=== PATIENT | male | born 1930 | race Caucasian/White ===

== ENCOUNTER 2017-11-02 12:57 | Emergency (ER) | payer MEDICARE, OTHER ==
[2017-11-02 13:20] VITALS: BP 129/83
[2017-11-02] MEDS ORDERED: Sodium Chloride 0.9% 10 ML Syringe FLUSH PRN (14:02)
--- NOTE | 2017-11-02 14:27 | EDM.PDOC ---
ED HPI GENERAL MEDICAL PROBLEM - General Chief Complaint: Neuro Symptoms/Deficits Stated Complaint: WEAK, UNABLE TO WALK, CONFUSED Time Seen by Provider: 11/02/17 13:27 Source of Information: Reports: Patient, Family History Limitations: Reports: Altered Mental Status - History of Present Illness INITIAL COMMENTS - FREE TEXT/NARRATIVE: The patient is an 87-year-old male who is brought in by a son and daughter for confusion and weakness. 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 Family states that they noticed a change about 2 weeks ago. The patient started to have some confused speech. This was intermittent. He would say things like "let's go home" when he was already at home. He also thought they need to plan corn which makes no sense since its winter time. He had a waxing and waning confusion. No known falls or trauma but he's become increasingly weak. Family states he now can't really get out of bed or go to the bathroom without assistance. He's had several bedwetting accidents. This is also a change, previously he was walking okay with a cane. No specific extremity weakness, just seems generally weak. No known fever. He's had a minimal cough. No chest pain or shortness of breath. Patient denies abdominal pain. No vomiting or diarrhea. He's had some urinary accidents. No skin change or rash. No history of similar symptoms previously. The patient lives at home with an elderly girlfriend. - Related Data Allergies Allergy/AdvReac Type Severity Reaction Status Date / Time No Known Allergies Allergy Verified 04/24/15 09:08 Home Meds: Home Meds Allopurinol [Allopurinol] 150 mg PO DAILY 01/03/15 [History] Ibuprofen [Ibuprofen] 1 tab PO TID 01/03/15 [History] Labetalol [Normodyne] 200 mg PO DAILY 01/03/15 [History] Levothyroxine [Synthroid] 50 mcg PO ACBREAKFAST 01/03/15 [History] Olmesartan [Benicar] 20 mg PO DAILY 01/03/15 [History] Omeprazole [priLOSEC OTC] 20 mg PO BID 01/03/15 [History] Potassium Chloride 20 meq PO BID 01/03/15 [History] Simvastatin [Simvastatin] 1 tab PO BEDTIME 01/03/15 [History] Spironolactone 50 mg PO DAILY 01/03/15 [History] amLODIPine [Norvasc] 5 mg PO DAILY 01/03/15 [History] Cephalexin 500 mg PO QID #16 capsule 11/02/17 [Rx] Past Medical History HEENT History: Reports: Macular Degeneration, Sinusitis Other HEENT History: Wears glasses Cardiovascular History: Reports: High Cholesterol, Hypertension Respiratory History: Reports: Bronchitis, Recurrent, Other (See Below) Other Respiratory History: chronic airway obstruction-steady cough Gastrointestinal History: Reports: GERD Neurological History: Reports: Migraines, Other (See Below) 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; benign Endocrine/Metabolic History: Reports: Hypoparathyroidism - Past Surgical History HEENT Surgical History: Reports: Adenoidectomy, Cataract Surgery, Tonsillectomy GI Surgical History: Reports: Appendectomy, Cholecystectomy Social & Family History - Tobacco Use Smoking Status *Q: Former Smoker Used Tobacco, but Quit: Yes Month Tobacco Last Used: 35 yrs ago Second Hand Smoke Exposure: No - Caffeine Use Caffeine Use: Reports: Coffee, Soda, Tea - Alcohol Use Days Per Week of Alcohol Use: 0 Number of Drinks Per Day: 1 Total Drinks Per Week: 0 - Recreational Drug Use Recreational Drug Use: No ED ROS GENERAL - Review of Systems Review Of Systems: See Below Constitutional: Denies: Fever HEENT: Reports: No Symptoms Respiratory: Denies: Shortness of Breath Cardiovascular: Denies: Chest Pain Endocrine: Reports: Fatigue GI/Abdominal: Denies: Abdominal Pain, Nausea : Denies: Dysuria Musculoskeletal: Reports: No Symptoms Skin: Reports: No Symptoms Neurological: Reports: Confusion, Difficulty Walking Psychiatric: Reports: No Symptoms Hematologic/Lymphatic: Reports: No Symptoms Immunologic: Reports: No Symptoms ED EXAM, NEURO - Physical Exam Exam: See Below Exam Limited By: No Limitations General Appearance: Alert, WD/WN, No Apparent Distress, Other (Pleasantly confused. Answers some questions appropriately. Thinks it's 1978. He is oriented to person and place and knows the day of the week.) Eye Exam: Bilateral Eye: EOMI, Normal Inspection, PERRL Ears: Normal External Exam Nose: Normal Inspection Throat/Mouth: Normal Inspection, Normal Oropharynx, Normal Voice Head Exam: Atraumatic, Normocephalic Neck: Normal Inspection, Supple, Non-Tender, Full Range of Motion Respiratory/Chest: No Respiratory Distress, Lungs Clear, Normal Breath Sounds, No Accessory Muscle Use Cardiovascular: Normal Peripheral Pulses, Regular Rate, Rhythm, No Edema, No Murmur GI/Abdominal: Soft, Non-Tender, No Distention. No: Rebound Neurological: Alert, Normal Mood/Affect, Normal Dorsiflexion, CN II-XII Intact, Normal Plantar Flexion, No Motor/Sensory Deficits, Other (Oriented to person and place and day of week but thinks its 1978) Back Exam: Normal Inspection. No: Vertebral Tenderness Extremities: Normal Inspection, No Pedal Edema. No: Pallor Psychiatric: Normal Affect, Normal Mood Skin Exam: Warm, Dry, Intact, Normal Color, No Rash Course - Vital Signs Last Recorded V/S: Last Vital Signs Temp 36.7 C 11/02/17 13:19 Pulse 93 11/02/17 13:19 Resp 20 11/02/17 13:19 BP 129/83 11/02/17 13:19 Pulse Ox 94 L 11/02/17 13:19 - Orders/Labs/Meds Orders: Active Orders 24 hr Category Date Time Status EKG 12 Lead [EKG Documentation Completion] [RC] STAT Care 11/02/17 14:01 Active Peripheral IV Care [RC] . DIRECTED Care 11/02/17 14:02 Active Chest 1V Frontal [CR] Stat Exams 11/02/17 14:01 Taken CULTURE URINE [RM] Stat Lab 11/02/17 15:35 Results Peripheral IV Insertion Adult [OM.PC] Routine Oth 11/02/17 14:02 Ordered Labs: Laboratory Tests 11/02/17 11/02/17 11/02/17 Range/Units 14:40 14:40 15:35 WBC 11.43 H (4.23-9.07) K/mm3 RBC 4.41 L (4.63-6.08) M/mm3 Hgb 13.8 (13.7-17.5) gm/L Hct 42.1 (40.1-51.0) % MCV 95.5 H (79.0-92.2) fl MCH 31.3 (25.7-32.2) pg MCHC 32.8 (32.2-35.5) g/dl RDW Std Deviation 48.9 H (35.1-43.9) fL Plt Count 150 L (163-337) K/mm3 MPV 10.7 (9.4-12.3) fl Neut % (Auto) 73.3 H (34.0-67.9) % Lymph % (Auto) 13.0 L (21.8-53.1) % [place] % (Auto) 12.4 H (5.3-12.2) % Eos % (Auto) 1.0 (0.8-7.0) Baso % (Auto) 0.1 (0.1-1.2) % Neut # (Auto) 8.38 H (1.78-5.38) K/mm3 Lymph # (Auto) 1.49 (1.32-3.57) K/mm3 [place] # (Auto) 1.42 H (0.30-0.82) K/mm3 Eos # (Auto) 0.11 (0.04-0.54) K/mm3 Baso # (Auto) 0.01 (0.01-0.08) K/mm3 Sodium 144 (136-145) mEq/L Potassium 3.6 (3.5-5.1) mEq/L Chloride 107 (98-107) mEq/L Carbon Dioxide 27 (21-32) mEq/L Anion Gap 13.6 (5-15) BUN 29 H (7-18) mg/dL Creatinine 1.2 (0.7-1.3) mg/dL Est Cr Clr Drug Dosing 45.01 mL/min Estimated GFR (MDRD) 58 (>60) mL/min BUN/Creatinine Ratio 24.2 H (14-18) Glucose 89 (83-115) mg/dL Calcium 10.7 H (8.5-10.1) mg/dL Total Bilirubin 0.7 (0.2-1.0) mg/dL AST 61 H (15-37) U/L ALT 27 (16-63) U/L Alkaline Phosphatase 53 (46-116) U/L Troponin I < 0.017 (0.00-0.056) ng/mL Total Protein 8.0 (6.4-8.2) g/dl Albumin 4.1 (3.4-5.0) g/dl Globulin 3.9 gm/dL Albumin/Globulin Ratio 1.1 (1-2) Free T4 1.18 (0.76-1.46) ng/dL TSH 3rd Generation 1.817 (0.358-3.74) uIU/mL Urine Color Dark yellow (Yellow) Urine Appearance Slt cloudy H (Clear) Urine pH 5.5 (5.0-8.0) Ur Specific [place] > or = 1.030 (1.005-1.030) Urine Protein 2+ H (Negative) Urine Glucose (UA) Negative (Negative) Urine Ketones Trace H (Negative) Urine Occult Blood 2+ H (Negative) Urine Nitrite Negative (Negative) Urine Bilirubin 1+ H (Negative) Urine Urobilinogen 0.2 (0.2-1.0) Ur Leukocyte Esterase Negative (Negative) Urine RBC 5-10 H (0-5) /hpf Urine WBC 5-10 H (0-5) /hpf Ur Epithelial Cells 0-5 (0-5) /hpf Urine Bacteria Moderate H (FEW) /hpf Urine Mucus Many H (FEW) /hpf Meds: Medications Discontinued Medications Generic Name Dose Route Start Last Admin Trade Name Freq PRN Reason Stop Dose Admin Cephalexin 500 mg 11/02/17 16:35 11/02/17 16:47 Keflex PO 11/02/17 16:36 500 mg ONETIME ONE Administration Sodium Chloride 1,000 mls @ 1,000 mls/hr 11/02/17 16:23 11/02/17 17:38 Normal Saline IV 11/02/17 17:22 Not Given ONETIME ONE Sodium Chloride 10 ml 11/02/17 14:02 Saline Flush FLUSH ASDIRECTED PRN Keep Vein Open - Re-Assessments/Exams Free Text/Narrative Re-Assessment/Exam: CT head shows no acute abnormality. CXR shows no acute abnormality. WBC count 11. UA shows concentrated urine. LCE/nitrite neg. 5-10 WBC but many bacteria. Culture sent. Meanwhile, will treat until culture returns. Remaining labs including chemistry and thyroid studies unremarkable. No definite explanation for mental status change. Delirium due to unknown factor vs. dementia. Offered admission for further workup and possible ultimate placement but family prefers to take pt home. They have f/u scheduled with Dr. Chu on Sunday. Discussed return precautions. 11/03/17 10:29 Departure - Departure Time of Disposition: 16:35 Disposition: Home, Self-Care 01 Clinical Impression: Urinary tract infection Qualifiers: Urinary tract infection type: acute cystitis Hematuria presence: with hematuria Qualified Code(s): N30.01 - Acute cystitis with hematuria Altered mental status Qualifiers: Altered mental status type: delirium Qualified Code(s): R41.0 - Disorientation , unspecified - Discharge Information Prescriptions: Cephalexin 500 mg PO QID #16 capsule Instructions: Urinary Tract Infection, Adult, [id number] Referrals: Reese Chu MD [Primary Care Provider] - Forms: ED Department Discharge Additional Instructions: 1. Urine test was not conclusive for infection, but also wasn't normal. We will send a urine culture and I will call you in 1-2 days with result. Meanwhile, we will treat with an antibiotic. You will need additional days of antibiotic if culture is positive. 2. Follow up with Dr. Chu on Sunday as planned. 3. Return to ED at any time if worse, or if Eddie has fever, shortness of breath, abdominal pain, vomiting, or worsening confusion or any other concerning symptoms - My Orders Last 24 Hours: My Active Orders 11/02/17 14:01 EKG 12 Lead [EKG Documentation Completion] [RC] STAT Chest 1V Frontal [CR] Stat 11/02/17 14:02 Peripheral IV Care [RC] . DIRECTED Peripheral IV Insertion Adult [OM.PC] Routine 11/02/17 15:35 CULTURE URINE [RM] Stat - Assessment/Plan Last 24 Hours: My Active Orders 11/02/17 14:01 EKG 12 Lead [EKG Documentation Completion] [RC] STAT Chest 1V Frontal [CR] Stat 11/02/17 14:02 Peripheral IV Care [RC] . DIRECTED Peripheral IV Insertion Adult [OM.PC] Routine 11/02/17 15:35 CULTURE URINE [RM] Stat
--- NOTE | 2017-11-02 14:34 | CT ---
Head CT Technique: Multiple axial sections through the brain were obtained. Intravenous contrast was not utilized. Comparison: Prior MRI brain dated 10/30/17 and baseline MRI brain of 03/22/10. Findings: Ventricles along with basal cisterns and sulci over convexities are mildly prominent. Small high density area is seen along the medial right lateral ventricle. This finding measures approximately 1 cm in size. This finding is stable from prior MRI brain exams. This finding presumably is due to benign tumor. No other abnormal parenchymal densities are seen. No evidence of intracranial hemorrhage. No midline shift or mass effect is seen. Bone window settings were reviewed which shows no acute calvarial abnormality. Visualized sinuses are clear. Impression: 1. 1 cm intraventricular abnormality within the right lateral ventricle along its medial aspect. This finding was not mentioned on prior MRI study of 10/30/17 but is seen in retrospect. This finding is stable back to baseline MRI of 03/22/10. As mentioned above, this is felt to represent an incidental benign tumor since it is stable. 2. Mild senescent change. 3. No acute intracranial abnormality is appreciated. Diagnostic code #3
[2017-11-02] MEDS ORDERED: Sodium Chloride 0.9% 1,000 ML IV ONE (16:23)
[2017-11-02] MEDS ORDERED: Cephalexin 500 MG Cap PO ONE (16:35)
--- NOTE | 2017-11-05 08:34 | CR ---
Chest: Portable view of the chest was obtained. Comparison: Prior chest CT of 03/15/15, no prior chest x-ray is available. Small nodules are seen within the chest compatible with granulomas. These are identified on prior chest CT. Lungs otherwise are clear. Heart size is normal. Tortuous thoracic aorta is seen. Bony structures are grossly intact. Impression: 1. Scattered granulomas within the chest. 2. Nothing acute is appreciated on portable chest x-ray. Diagnostic code #2
== END 2017-11-02 16:55 | disposition home or self-care (01) ==
LOC: JD.ED 12:57
DX: N30.01 Acute cystitis with hematuria (principal); R41.0 Disorientation, unspecified; I10 Essential (primary) hypertension; E78.00 Pure hypercholesterolemia, unspecified; Z79.899 Other long term (current) drug therapy; Z87.891 Personal history of nicotine dependence
CPT/HCPCS: 36415; 70450; 71010; 80053; 81001; 84439; 84443; 84484; 85025; 87086; 93005; 99285; A9270; 99283

== ENCOUNTER 2018-01-22 11:19 | Emergency (ER) | payer MEDICARE, OTHER ==
[2018-01-22] MEDS ORDERED: Sodium Chloride 0.9% 10 ML Syringe FLUSH PRN (12:02)
[2018-01-22] MEDS ORDERED: Sodium Chloride 0.9% 1,000 ML IV SCH (12:15)
--- NOTE | 2018-01-22 12:30 | CT ---
Small abnormality felt to represent a focal area of parenchymal hemorrhage appears to be stable from previous studies. The area of increased density within the posterior occipital horns remains is an interval change. On most recent MRI there is areas of signal void being within this finding which is compatible with hemosiderin compatible with chronic hemorrhage. Presumed intraventricular blood may result present a small acute hemorrhage from this finding. Recommend follow-up head CT in 24 hours to make sure findings are stable. --- Addendum1 above dictated on [01/22/2018 12:49] by [Courtney Monroe Hilton J.] --- --- Addendum1 above signed on [01/22/2018 12:51] by [Courtney Monroe Hilton J.] --- --- Original report below dictated on [01/22/2018 12:26] by [Coutrney Monroe, Hans Kim] --- --- Original report below signed on [01/22/2018 12:27] by [Courtney Monroe, Hans Kim] --- Head CT Technique: Multiple axial sections through the brain were obtained. Intravenous contrast was not utilized. Findings: Vague increased density is identified within the occipital horns of both lateral ventricles which is felt to be due to a small amount of blood. Small amount of parenchymal blood is also identified adjacent to the medial right lateral ventricle measuring about 1 cm in size. No other areas of hemorrhage are seen. Ventricles along with basal cisterns and sulci over convexities are moderately prominent. Mild atherosclerotic calcification is seen within the carotid siphon. No acute calvarial abnormality is seen. Impression: 1. Small amount of blood within the dependent occipital lobes of the lateral ventricles. 2. Small parenchymal hemorrhage within the medial aspect of the lateral right ventricle. This is the likely etiology for the intraventricular blood. Etiology for this small parenchymal hemorrhage is not apparent on this exam. 3. Senescent change as noted above. Diagnostic code #5 --- Addendum1 signed ---
--- NOTE | 2018-01-22 12:38 | CR ---
Chest: Portable view of the chest was obtained. Comparison: Prior chest x-ray at 11/02/17. Two small nodules are seen within both lung bases most likely due to granulomas. Minimal bibasilar atelectasis is seen. Lungs otherwise are clear. Heart size is normal. Tortuous thoracic aorta is seen. Bony structures are grossly intact. Impression: 1. Incidental findings. Nothing acute is seen. Diagnostic code #2
[2018-01-22] MEDS ORDERED: Lidocaine 2% Jelly 10 ML Urojet ONE (13:16)
--- NOTE | 2018-01-22 13:35 | EDM.PDOC ---
ED HPI GENERAL MEDICAL PROBLEM - General Chief Complaint: General Stated Complaint: FALL/HEAD INJURY Time Seen by Provider: 01/22/18 11:37 Source of Information: Reports: Patient History Limitations: Reports: No Limitations - History of Present Illness INITIAL COMMENTS - FREE TEXT/NARRATIVE: The patient presents with family from [facility] for confusion and altered mental status. The patient started having problems back in October. He was living at home with a girlfriend for many years. She left because she could not take care of him. Family had him evaluated at the ER here and with his provider and with neurology and a neurosurgeon. He was confused and having trouble with walking. 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 He has been a fall risk. He will get up and walk around. He fell a few days ago. He has not been acting the same since. He has not been talking and been confused. He cannot walk without 2 lots of help. He has no fever, he has not been coughing or vomiting. He does have some trouble now when he drinks water. He does choke on it. He has not been eating much. Onset: Gradual Duration: Week(s): Severity: Moderate Improves with: Reports: None Worsens with: Reports: None Associated Symptoms: Denies: Cough, Fever/Chills, Nausea/Vomiting, Shortness of Breath - Related Data Allergies Allergy/AdvReac Type Severity Reaction Status Date / Time No Known Allergies Allergy Verified 01/22/18 11:39 Home Meds: Home Meds Allopurinol [Allopurinol] 150 mg PO DAILY 01/03/15 [History] Levothyroxine [Synthroid] 50 mcg PO ACBREAKFAST 01/03/15 [History] Omeprazole [priLOSEC OTC] 20 mg PO DAILY 01/03/15 [History] Potassium Chloride 10 meq PO BID 01/03/15 [History] Spironolactone 25 mg PO DAILY 01/03/15 [History] Acetaminophen [Mapap] 1,000 mg PO TID 01/22/18 [History] Acetaminophen/HYDROcodone [[place] 325-5 MG] 1 tab PO BID PRN 01/22/18 [History] Cyanocobalamin (Vitamin B-12) [Vitamin B-12] 1,000 mcg PO DAILY 01/22/18 [ History] Donepezil HCl [Aricept] 10 mg PO BEDTIME 01/22/18 [History] Lactose-Reduced Food [Ensure] 8 oz PO BID 01/22/18 [History] Magnesium Oxide [Magnesium] 400 mg PO DAILY 01/22/18 [History] Melatonin 3 mg PO BEDTIME 01/22/18 [History] Methyl Salicylate/Menthol [Salonpas Patch] 1 each TP DAILY 01/22/18 [History] QUEtiapine Fumarate [Seroquel] 12.5 mg PO PCBREAKFAST 01/22/18 [History] QUEtiapine Fumarate [Seroquel] 37.5 mg PO BEDTIME 01/22/18 [History] Sennosides/Docusate Sodium [Senna-S] 2 tab PO DAILY PRN 01/22/18 [History] Vit C/Vit E Ac/Lut/Mineral 1 [Prosight with Lutein] 1 each PO DAILY 01/22/18 [ History] Past Medical History HEENT History: Reports: Hard of Hearing, Impaired Vision, Macular Degeneration, Sinusitis Other HEENT History: Wears glasses Cardiovascular History: Reports: High Cholesterol, Hypertension Respiratory History: Reports: Bronchitis, Recurrent, Other (See Below) Other Respiratory History: chronic airway obstruction-steady cough Gastrointestinal History: Reports: Chronic Constipation, GERD Musculoskeletal History: Reports: Back Pain, Chronic, Other (See Below) Other Musculoskeletal History: mobility and gait difficulties Neurological History: Reports: Migraines, Other (See Below) 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, disorientation , alzheimer's, dementia, cognitive communication deficit Psychiatric History: Reports: Alzheimers Disease, Dementia, Other (See Below) Other Psychiatric History: insomnia Endocrine/Metabolic History: Reports: Hypothyroidism Hematologic History: Reports: B12 Deficiency - Past Surgical History HEENT Surgical History: Reports: Adenoidectomy, Cataract Surgery, Tonsillectomy GI Surgical History: Reports: Appendectomy, Cholecystectomy Social & Family History - Family History Family Medical History: Noncontributory - Tobacco Use Smoking Status *Q: Never Smoker Used Tobacco, but Quit: Yes Month Tobacco Last Used: 35 yrs ago Second Hand Smoke Exposure: No - Caffeine Use Caffeine Use: Reports: Coffee - Alcohol Use Days Per Week of Alcohol Use: 0 Number of Drinks Per Day: 1 Total Drinks Per Week: 0 - Recreational Drug Use Recreational Drug Use: No ED ROS GENERAL - Review of Systems Review Of Systems: Unable To Obtain ED EXAM, GENERAL - Physical Exam Exam: See Below Exam Limited By: Altered Mental Status General Appearance: Alert, Other (The patient does not talk and he will not follow commands) Ears: Normal External Exam Nose: Normal Inspection Head: Other (Ecchymosis and mild edema to the right side of his head) Neck: Normal Inspection Respiratory/Chest: No Respiratory Distress, Lungs Clear, Normal Breath Sounds Cardiovascular: Regular Rate, Rhythm, No Edema, No Murmur GI/Abdominal: Soft, Non-Tender, No Organomegaly, No Mass Back Exam: Normal Inspection Extremities: Normal Inspection Neurological: Alert, Other (He will not talk except once he said high) EKG INTERPRETATION EKG Date: 01/22/18 Time: 13:34 Rhythm: NSR Rate (Beats/Min): 98 [place]: Normal P-Wave: Present QRS: Normal ST-T: Normal QT: Normal Course - Vital Signs Last Recorded V/S: Last Vital Signs Temp 100.8 F H 01/22/18 17:53 Pulse 169 H 01/22/18 18:32 Resp 24 H 01/22/18 17:48 BP 108/68 01/22/18 18:32 Pulse Ox 91 L 01/22/18 17:48 - Orders/Labs/Meds Orders: Active Orders 24 hr Category Date Time Status Cardiac Monitoring [RC] . DIRECTED Care 01/22/18 12:02 Active EKG Documentation Completion [RC] STAT Care 01/22/18 12:03 Active Peripheral IV Care [RC] . DIRECTED Care 01/22/18 12:02 Active CULTURE BLOOD [BC] Stat Lab 01/22/18 14:57 Received CULTURE BLOOD [BC] Stat Lab 01/22/18 18:30 Received Sodium Chloride 0.9% [Normal Saline] 1,000 ml Med 01/22/18 12:15 Active IV .BOLUS Sodium Chloride 0.9% [Saline Flush] Med 01/22/18 12:02 Active 10 ml FLUSH ASDIRECTED PRN cefTRIAXone [Rocephin] 2 gm Med 01/22/18 14:45 Active Sodium Chloride 0.9% [Normal Saline] 100 ml IV Q24H Blood Culture x2 Reflex Set [OM.PC] Stat Oth 01/22/18 14:42 Ordered Peripheral IV Insertion Adult [OM.PC] Stat Ot 01/22/18 12:02 Ordered Medication Orders Sodium Chloride (Normal Saline) 1,000 mls @ 1,000 mls/hr IV .[facility]OLUS [facility] Last Admin: 01/22/18 12:30 Dose: 1,000 mls/hr Ceftriaxone Sodium 2 gm/ (Sodium Chloride) 100 mls @ 100 mls/hr IV Q24H MARIA VICTORIA Last Admin: 01/22/18 15:16 Dose: 100 mls/hr Sodium Chloride (Saline Flush) 10 ml FLUSH ASDIRECTED PRN PRN Reason: Keep Vein Open Last Admin: 01/22/18 12:29 Dose: 10 ml Labs: Laboratory Tests 01/22/18 01/22/18 01/22/18 Range/Units 12:30 12:30 17:45 WBC 15.36 H (4.23-9.07) K/mm3 RBC 3.93 L (4.63-6.08) M/mm3 Hgb 12.4 L (13.7-17.5) gm/L Hct 38.0 L (40.1-51.0) % MCV 96.7 H (79.0-92.2) fl MCH 31.6 (25.7-32.2) pg MCHC 32.6 (32.2-35.5) g/dl RDW Std Deviation 50.5 H (35.1-43.9) fL Plt Count 179 (163-337) K/mm3 MPV 10.8 (9.4-12.3) fl Neut % (Auto) 82.0 H (34.0-67.9) % Lymph % (Auto) 5.3 L (21.8-53.1) % [place] % (Auto) 12.4 H (5.3-12.2) % Eos % (Auto) 0 L (0.8-7.0) Baso % (Auto) 0.1 (0.1-1.2) % Neut # (Auto) 12.60 H (1.78-5.38) K/mm3 Lymph # (Auto) 0.81 L (1.32-3.57) K/mm3 [place] # (Auto) 1.91 H (0.30-0.82) K/mm3 Eos # (Auto) 0.00 L (0.04-0.54) K/mm3 Baso # (Auto) 0.01 (0.01-0.08) K/mm3 Manual Slide Review Abnormal smear Sodium 143 (136-145) mEq/L Potassium 4.2 (3.5-5.1) mEq/L Chloride 106 (98-107) mEq/L Carbon Dioxide 28 (21-32) mEq/L Anion Gap 13.2 (5-15) BUN 54 H (7-18) mg/dL Creatinine 1.5 H (0.7-1.3) mg/dL Est Cr Clr Drug Dosing 37.18 mL/min Estimated GFR (MDRD) 44 (>60) mL/min BUN/Creatinine Ratio 36.0 H (14-18) Glucose 117 H (83-115) mg/dL Lactic Acid (0.4-2.0) mmol/L Calcium 10.4 H (8.5-10.1) mg/dL Total Bilirubin 0.5 (0.2-1.0) mg/dL AST 21 (15-37) U/L ALT 23 (16-63) U/L Alkaline Phosphatase 62 (46-116) U/L Troponin I < 0.017 (0.00-0.056) ng/mL Total Protein 7.3 (6.4-8.2) g/dl Albumin 3.5 (3.4-5.0) g/dl Globulin 3.8 gm/dL Albumin/Globulin Ratio 0.9 L (1-2) Urine Color Red H (Yellow) Urine Appearance Turbid H (Clear) Urine pH 6.5 (5.0-8.0) Ur Specific [place] 1.015 (1.005-1.030) Urine Protein 2+ H (Negative) Urine Glucose (UA) Negative (Negative) Urine Ketones Negative (Negative) Urine Occult Blood 3+ H (Negative) Urine Nitrite Negative (Negative) Urine Bilirubin 1+ H (Negative) Urine Urobilinogen 0.2 (0.2-1.0) Ur Leukocyte Esterase Negative (Negative) Urine RBC >100 H (0-5) /hpf Urine WBC 0-5 (0-5) /hpf Ur Epithelial Cells Not seen (0-5) /hpf Urine Bacteria Moderate H (FEW) /hpf Urine Mucus Not seen (FEW) /hpf 01/22/18 01/22/18 Range/Units 18:30 18:30 WBC (4.23-9.07) K/mm3 RBC (4.63-6.08) M/mm3 Hgb 11.9 L (13.7-17.5) gm/L Hct 36.1 L (40.1-51.0) % MCV (79.0-92.2) fl MCH (25.7-32.2) pg MCHC (32.2-35.5) g/dl RDW Std Deviation (35.1-43.9) fL Plt Count (163-337) K/mm3 MPV (9.4-12.3) fl Neut % (Auto) (34.0-67.9) % Lymph % (Auto) (21.8-53.1) % [place] % (Auto) (5.3-12.2) % Eos % (Auto) (0.8-7.0) Baso % (Auto) (0.1-1.2) % Neut # (Auto) (1.78-5.38) K/mm3 Lymph # (Auto) (1.32-3.57) K/mm3 [place] # (Auto) (0.30-0.82) K/mm3 Eos # (Auto) (0.04-0.54) K/mm3 Baso # (Auto) (0.01-0.08) K/mm3 Manual Slide Review Sodium (136-145) mEq/L Potassium (3.5-5.1) mEq/L Chloride (98-107) mEq/L Carbon Dioxide (21-32) mEq/L Anion Gap (5-15) BUN (7-18) mg/dL Creatinine (0.7-1.3) mg/dL Est Cr Clr Drug Dosing mL/min Estimated GFR (MDRD) (>60) mL/min BUN/Creatinine Ratio (14-18) Glucose (83-115) mg/dL Lactic Acid 5.3 H (0.4-2.0) mmol/L Calcium (8.5-10.1) mg/dL Total Bilirubin (0.2-1.0) mg/dL AST (15-37) U/L ALT (16-63) U/L Alkaline Phosphatase (46-116) U/L Troponin I (0.00-0.056) ng/mL Total Protein (6.4-8.2) g/dl Albumin (3.4-5.0) g/dl Globulin gm/dL Albumin/Globulin Ratio (1-2) Urine Color (Yellow) Urine Appearance (Clear) Urine pH (5.0-8.0) Ur Specific [place] (1.005-1.030) Urine Protein (Negative) Urine Glucose (UA) (Negative) Urine Ketones (Negative) Urine Occult Blood (Negative) Urine Nitrite (Negative) Urine Bilirubin (Negative) Urine Urobilinogen (0.2-1.0) Ur Leukocyte Esterase (Negative) Urine RBC (0-5) /hpf Urine WBC (0-5) /hpf Ur Epithelial Cells (0-5) /hpf Urine Bacteria (FEW) /hpf Urine Mucus (FEW) /hpf Meds: Medications Generic Name Dose Route Start Last Admin Trade Name Freq PRN Reason Stop Dose Admin Sodium Chloride 1,000 mls @ 1,000 mls/hr 01/22/18 12:15 01/22/18 12:30 Normal Saline IV 1,000 mls/hr .BOLUS MARIA VICTORIA Administration Ceftriaxone Sodium 2 gm/ 100 mls @ 100 mls/hr 01/22/18 14:45 01/22/18 15:16 Sodium Chloride IV 100 mls/hr Q24H MARIA VICTORIA Administration Sodium Chloride 10 ml 01/22/18 12:02 01/22/18 12:29 Saline Flush FLUSH 10 ml ASDIRECTED PRN Administration Keep Vein Open Discontinued Medications Generic Name Dose Route Start Last Admin Trade Name Freq PRN Reason Stop Dose Admin Acetaminophen 650 mg 01/22/18 17:40 01/22/18 17:53 Tylenol RECTAL 01/22/18 17:41 650 mg NOW ONE Administration Hydromorphone HCl Confirm 01/22/18 14:08 01/22/18 14:07 Dilaudid Administered 01/22/18 14:09 Not Given Dose 0.5 mg .ROUTE .STK-MED ONE Hydromorphone HCl 0.5 mg 01/22/18 14:05 01/22/18 14:05 Dilaudid IVPUSH 01/22/18 14:06 0.5 mg ONETIME ONE Administration Hydromorphone HCl 0.5 mg 01/22/18 17:01 01/22/18 17:11 Dilaudid IVPUSH 01/22/18 17:02 0.5 mg ONETIME ONE Administration Sodium Chloride 1,000 mls @ 1,000 mls/hr 01/22/18 18:04 01/22/18 18:12 Normal Saline IV 01/22/18 19:03 1,000 mls/hr ONETIME ONE Administration Ketorolac Tromethamine 30 mg 01/22/18 19:36 Toradol IVPUSH 01/22/18 19:37 ONETIME ONE Lidocaine HCl 10 ml 01/22/18 13:09 01/22/18 14:49 Xylocaine 2% Jelly MUCMEM 01/22/18 13:10 10 ml ONETIME ONE Administration Lidocaine HCl Confirm 01/22/18 13:16 01/22/18 13:32 Xylocaine 2% Jelly Administered 01/22/18 13:17 Not Given Dose 10 ml .ROUTE .STK-MED ONE Lidocaine HCl 10 ml 01/22/18 17:03 01/22/18 17:12 Xylocaine 1% INJECT 01/22/18 17:04 10 ml ONETIME ONE Administration Lorazepam 0.25 mg 01/22/18 14:22 01/22/18 14:28 Ativan IVPUSH 01/22/18 14:23 0.25 mg ONETIME ONE Administration Lorazepam 0.5 mg 01/22/18 14:41 01/22/18 14:49 Ativan IVPUSH 01/22/18 14:42 0.5 mg ONETIME ONE Administration Lorazepam 0.5 mg 01/22/18 17:00 01/22/18 17:12 Ativan IVPUSH 01/22/18 17:01 0.5 mg ONETIME ONE Administration Metoprolol Tartrate 5 mg 01/22/18 18:28 01/22/18 18:32 Lopressor IVPUSH 01/22/18 18:29 5 mg ONETIME ONE Administration - Re-Assessments/Exams Free Text/Narrative Re-Assessment/Exam: 01/22/18 19:[address] of his head, IV NS at 125mL/hr, EKG, CXR, labs and a UA. His EKG shows NSR with no acute changes. His CXR shows no infiltrate. His CT shows a small abnormality felt to represent a focal area of parenchymal hemorrhage appears to be stable from previous studies. The area of increased density within the posterior occipital horns remains an interval change. On most recent MRI there is areas of signal void being within the finding which is compatible with hemosiderin compatible with chronic hemorrhage. Presumed intraventricular blood may represent a small acute hemorrhage from this finding. His WBC was elevated at 15.36. His Hgb was 12.4. His creatinine was elevated at 1.5. His glucose was 117. His lactic acid was elevated at 5.3. His troponin was negative. The patient could not urinate for us and he had 300mls on bladder scan. My nurse tried to straight cath him but she only got blood and no urine. She then tried a dodge cath and that would not go. She then was able to get in a 3 way cath and attempted to irrigate. I suspected he may have a UTI. I ordered blood cultures and rocephin. We were unable to get a good urine it was blood initially from the prostate area and then it was saline from the irrigation. The irrigation would not flow and we attempted many times to irrigate the clot and we could not. My nurse removed the 3 way cath and I tried to put a cudet in with no success. I then put a suprapubic cath in. At that time he had over a liter in his bladder. It was draining out blood fluid. I was able to get a UA that showed blood and some bacteria. I talked to our hospitalist Dr Flood and she did not feel comfortable taking care of him here. I called [facility] and talked with Dr Palacios and she accpeted the patient. During the cath he spiked a temp of 100.9 I gave him tylenol 650mg [place]. His temp went up later to 102 and I ordered some toradol. I ordered a total fluid bolus of 2500. Departure - Departure Time of Disposition: 20:00 Disposition: DC/Tfer to Acute Hospital 02 Condition: Serious Clinical Impression: Brain bleed, Confusion, Urinary (tract) obstruction, Renal insufficiency, Dehydration Fall Qualifiers: Encounter type: initial encounter Qualified Code(s): W19.XXXA - Unspecified fall, initial encounter UTI (urinary tract infection) Qualifiers: Urinary tract infection type: acute cystitis Hematuria presence: with hematuria Qualified Code(s): N30.01 - Acute cystitis with hematuria Fever Qualifiers: Fever type: due to other condition Qualified Code(s): R50.81 - Fever presenting with conditions classified elsewhere Failure to thrive Qualifiers: Failure to thrive age range: in adult Qualified Code(s): R62.7 - Adult failure to thrive Hematuria Qualifiers: Hematuria type: gross Qualified Code(s): R31.0 - Gross hematuria - Discharge Information Referrals: Reese Chu MD [Primary Care Provider] - Forms: ED Department Discharge - My Orders Last 24 Hours: My Active Orders 01/22/18 12:02 Cardiac Monitoring [RC] . DIRECTED Peripheral IV Care [RC] . DIRECTED Sodium Chloride 0.9% [Saline Flush] 10 ml FLUSH ASDIRECTED PRN Peripheral IV Insertion Adult [OM.PC] Stat 01/22/18 12:03 EKG Documentation Completion [RC] STAT 01/22/18 12:15 Sodium Chloride 0.9% [Normal Saline] 1,000 ml IV .BOLUS 01/22/18 14:42 Blood Culture x2 Reflex Set [OM.PC] Stat 01/22/18 14:45 cefTRIAXone [Rocephin] 2 gm Sodium Chloride 0.9% [Normal Saline] 100 ml IV Q24H 01/22/18 14:57 CULTURE BLOOD [BC] Stat 01/22/18 18:30 CULTURE BLOOD [BC] Stat - Assessment/Plan Last 24 Hours: My Active Orders 01/22/18 12:02 Cardiac Monitoring [RC] . DIRECTED Peripheral IV Care [RC] . DIRECTED Sodium Chloride 0.9% [Saline Flush] 10 ml FLUSH ASDIRECTED PRN Peripheral IV Insertion Adult [OM.PC] Stat 01/22/18 12:03 EKG Documentation Completion [RC] STAT 01/22/18 12:15 Sodium Chloride 0.9% [Normal Saline] 1,000 ml IV .BOLUS 01/22/18 14:42 Blood Culture x2 Reflex Set [OM.PC] Stat 01/22/18 14:45 cefTRIAXone [Rocephin] 2 gm Sodium Chloride 0.9% [Normal Saline] 100 ml IV Q24H 01/22/18 14:57 CULTURE BLOOD [BC] Stat 01/22/18 18:30 CULTURE BLOOD [BC] Stat
[2018-01-22] MEDS: Lidocaine 2% Jelly 10 ML Urojet MUCMEM ONE ×2 (13:46→14:49)
[2018-01-22] MEDS ORDERED: HYDROmorphone 0.5 MG/0.5 ML SYRINGE IVPUSH ONE ×2 (14:05→17:01)
[2018-01-22] MEDS ORDERED: HYDROmorphone 0.5 MG/0.5 ML SYRINGE ONE (14:08)
[2018-01-22] MEDS ORDERED: LORazepam 2 MG/ML SDV IVPUSH ONE ×3 (14:22→17:00)
[2018-01-22] MEDS ORDERED: cefTRIAXone 2 GM in Sodium Chloride 0.9% 100 ML IV SCH (14:45)
[2018-01-22] MEDS ORDERED: Lidocaine 1% 10 ML MDV INJECT ONE (17:03)
[2018-01-22] MEDS ORDERED: Acetaminophen 650 MG Supp RECTAL ONE (17:40)
[2018-01-22] MEDS ORDERED: Sodium Chloride 0.9% 1,000 ML IV ONE (18:04)
[2018-01-22] MEDS ORDERED: Metoprolol Tartrate 5 MG/5 ML SDV IVPUSH ONE (18:28)
[2018-01-22 18:37] VITALS: BP 108/68
[2018-01-22] MEDS ORDERED: Ketorolac 30 MG/ML SDV IVPUSH ONE (19:36)
[2018-01-22] MEDS ORDERED: Sodium Chloride 0.9% 500 ML IV ONE (19:41)
[2018-01-22] MEDS ORDERED: Sodium Chloride 0.9% 1,000 ML ONE (19:46)
== END 2018-01-22 20:00 ==
LOC: JD.ED 11:19
DX: S06.2X9A Diffuse traumatic brain injury with loss of consciousness of unspecified duration, initial encounter (principal); N30.01 Acute cystitis with hematuria; N13.9 Obstructive and reflux uropathy, unspecified; N28.9 Disorder of kidney and ureter, unspecified; E86.0 Dehydration; R62.7 Adult failure to thrive; I10 Essential (primary) hypertension; E78.00 Pure hypercholesterolemia, unspecified; K21.9 Gastro-esophageal reflux disease without esophagitis; G30.9 Alzheimer's disease, unspecified; F02.80 Dementia in other diseases classified elsewhere, unspecified severity, without behavioral disturbance, psychotic disturbance, mood disturbance, and anxiety; E03.9 Hypothyroidism, unspecified; Z87.891 Personal history of nicotine dependence; Z79.899 Other long term (current) drug therapy; W19.XXXA Unspecified fall, initial encounter
CPT/HCPCS: 36415; 51703; 70450; 71045; 80053; 81001; 83605; 84484; 85014; 85018; 85025; 87040; 87086; 93005; 96361; 96365; 96375; 96376; 99285; A9270; J0696; J1170; J1885; J2060; J7030; J7040; J7050; 87077; 87088; 87186; J3490